=== PATIENT | male | born 1995 | race Caucasian/White ===

== ENCOUNTER 2023-09-03 20:58 | Emergency (ER) | payer OTHER, SELFPAY ==
[2023-09-03 21:12] VITALS: BP 144/95; PULSE 92; RESP 16; TEMP 36.6; O2SAT 97; BMI 30.6
--- NOTE | 2023-09-03 22:11 | ED.GENADULT ---
HPI - General Adult General Chief complaint: Skin/Abscess/Foreign Body Stated complaint: Cellulitis Time Seen by Provider: 09/03/23 21:59 Source: patient Mode of arrival: ambulatory Limitations: no limitations History of Present Illness ED Provider: Dr. Ana Carrero HPI narrative: Patient comes to the emergency room complaining of cellulitis on the posterior aspect of the right leg. Patient states that about a week ago, he was diagnosed with cellulitis, patient was given p.o. doxycycline. Patient states that the redness is still present and seems a bit bigger. Patient denies any fever or chills. Patient also complaining of diffuse dermatitis that has been present for several months, patient states that infection happened due to scratching due to the itchiness. Patient has tried triamcinolone for the chronic dermatitis without any significant improvement. Related Data Previous Rx's ?Medication ?Instructions ?Recorded fluticasone propionate 0.005 % 1 appl topical BID #60 grams 09/03/23 topical ointment sulfamethoxazole 800 1 tab PO BID #14 tabs 09/03/23 mg-trimethoprim 160 mg tablet (Bactrim DS) Allergies Allergy/AdvReac Type Severity Reaction Status Date / Time Penicillins Allergy Unknown RASH Verified 09/03/23 21:14 Review of Systems Review of Systems: Constitutional : No Weight loss, No Fever, No Chills, No Night Sweats, No Fatigue, No Malaise ENT/Mouth : No Hearing loss, No Ear Pain, No Nasal Congestion, No Sinus Pain, No Hoarseness, No sore throat, No Rhinorrhea, No Swallowing Difficulty Eyes: No Eye Pain, No Swelling, No Redness, No Foreign Body, No Discharge, No Vision Changes Cardiovascular : No Chest Pain, No SOB, No Dyspnea on Exertion, No Orthopnea, No Edema, No Palpitations Respiratory : No Cough, No Sputum, No Wheezing, No Smoke Exposure, No Dyspnea Gastrointestinal : No Nausea, No Vomiting, No Diarrhea, No Constipation, No abdominal Pain, No Hematochezia, No Melena Genitourinary : no irregular bleeding, No Dysuria, No Urinary Frequency, No Hematuria, No Urinary Incontinence, No Urgency, No Flank Pain, No Urinary Flow Changes, No Hesitancy Musculoskeletal : No joint pain, No Myalgias, No Joint Swelling Skin : Chronic itchy rash in bilateral upper and lower extremities, cellulitis in right lower extremity Neuro : No Weakness, No Numbness, No Paresthesias, No Loss of Consciousness, No Dizziness, No Headache Psych : No Anxiety/Panic, No Depression, No SI/HI/AH/VH, No Social Issues, Heme/Lymph: No Bruising, No Bleeding,No Lymphadenopathy Endocrine : No Polyuria, No Polydipsia, No Temperature Intolerance [facility] Social History Social History Advance Directives: No Advance Directives Information Provided: No Do you have a plan to hurt others: No Plan Physical Exam ED Vital Signs: Vital Signs - 24 hr 09/03/23 21:12 Temperature 98 F Pulse Rate 92 Respiratory Rate 16 Blood Pressure 144/95 H Pulse Oximetry 97 Oxygen Delivery Method Room Air BMI result Body Mass Index 30.6 Const Other: Appearance: Alert. Oriented X3. No acute distress. Eyes: Pupils equal, round and reactive to light. ENT: Pharynx normal. Neck: Normal inspection. Neck supple. No lymph nodes noted. No crepitus CVS: Normal heart rate and rhythm. Pulses normal. Normal S1 and S2 Respiratory: No respiratory distress. Breath sounds normal. No Wheezing. No rales Abdomen: Soft and nontender. No rigidity. No distention. Skin: Patient has chronic dermatitis in both upper and lower extremities, some hives and scratches. Patient has a 10 cm x 10 cm patch in the posterior aspect of the right leg above the knee flexure Extremities: No lower extremity edema. No Lacerations. No Rash Neuro: Oriented X 3. No motor deficit. No sensory deficit. Moving all extremities. No slurred speech. CN 2 through 12 grossly intact Psych: calm, cooperative, normal affect Medical Decision Making Medical Decision Making MDM Narrative: Discussed with the patient that he likely has to conditions, 1 is a chronic dermatitis and the other is a cellulitis. -doxycycline did not work, consider adding cephalosporin. Instead, patient will be taking Bactrim double strength b.i.d. to cover for MRSA Differential Diagnosis Differential Diagnoses: The differential diagnosis associated with the presentation includes (Dermatitis, cellulitis) Discharge Plan Discharge Clinical Impression: Cellulitis, Chronic dermatitis Patient Disposition: Home, Self-Care Instructions: Cellulitis (ED), Dermatitis (ED) Additional Instructions: Please follow-up with your primary care physician tomorrow. If you have any worsening or new symptoms, please return to the emergency room or call 911 Prescriptions: New sulfamethoxazole-trimethoprim [Bactrim DS] 800-160 mg tablet 1 tab PO BID Qty: 14 0RF fluticasone propionate 0.005 % ointment 1 appl topical BID Qty: 60 1RF Rx Instructions: Apply for 2 weeks Print Language: Tajik
[2023-09-03] MEDS: Sulfamethox/Trimeth 800/160 TABLET 1 TAB PO (22:12)
[2023-09-03 22:17] VITALS: BP 144/95; PULSE 92; RESP 16; TEMP 36.6; O2SAT 97
== END 2023-09-03 22:17 | disposition home or self-care (01) ==
PROVIDERS: Emergency Provider Emergency Medicine; PCP Internal Medicine
DX: L03.115 Cellulitis of right lower limb (principal); L30.8 Other specified dermatitis
CPT/HCPCS: 99282; 99283